=== PATIENT | female | born 2000 ===

== ENCOUNTER 2023-05-13 07:13 | Outpatient (AMB) | payer OTHER, SELFPAY ==
--- NOTE | 2023-05-13 07:30 | MHC.PC.OV ---
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 Accompanied by: Mother Allergies No Known Allergies Allergy (Verified 05/13/23 07:42) Medication List - Last Reconciled 05/13/23 by Princess Dhillon MD norethindrone-e.estradiol-iron 1 mg-20 mcg (21)/75 mg (7) (08/22 (28)) 1 tab PO DAILY Tobacco use date assessed: 05/13/23 Dental Screening Dental Screen Date: 05/13/23 Did you have a dental visit in the last 12 months?: Yes Did you have a dental problem in the last 6 months where you did not have access to dental care?: No Was dental information given to patient?: Patient has dentist HPI HPI Comments History of Present Illness Details This is a 23-year-old female that comes for her physical accompanied by mother. Pap smear is scheduled for next week. She is obese with a BMI of 39.7 and will be referred to weight management. No chest pain or shortness of breath. [facility] Surgical History No pertinent past surgical history Family History Mother No problems noted. Father No problems noted. Social History Housing: House Alcohol intake: current Alcohol intake frequency: holidays/special occasions only Alcohol type: wine and other Patient Tobacco Use Status: Never used Tobacco e-Cigarette/Vaping Use: Never Used Second Hand Smoke Exposure: No service: No Current occupational status: employed and student Current occupational exposures/hazards: No Cognitive needs: No Hearing needs: No Vision needs: Yes Questionnaire PHQ-9 Over the last 2 weeks, how often have you been bothered by any of the following problems? 1. Little interest or pleasure in doing things: not at all 2. Feeling down, depressed, or hopeless: not at all 3. Trouble falling or staying asleep, or sleeping too much: not at all 4. Feeling tired or having little energy: not at all 5. Poor appetite or overeating: not at all 6. Feeling bad about yourself - or that you are a failure or have let yourself or your family down: not at all 7. Trouble concentrating on things, such as reading the newspaper or watching television: not at all 8. Moving or speaking so slowly that other people could have noticed. Or the opposite - being so fidgety or restless that you have been moving around a lot more than usual: not at all 9. Thoughts that you would be better off or of hurting yourself in some way: not at all Total score: 0 Depression Screening Interpretation: Negative Depression Screening Done: Yes 56703 - PHQ-9 Billing: Yes Source: Developed by Drs. Donell Mesa, Christina Barr, Phillip Shah and colleagues, with an educational karlee from [employer]. Thrive Questionnaire Date Thrive assessed: 05/13/23 I am a: Patient What is your living situation today?: I have a steady place to live Within the past 12 months, did the food you bought not last and you didn't have the money to get more?: Never true Within the past 12 months, did you worry whether your food would run out before you got money to buy more?: Never true Do you have trouble paying for medicines?: No Do you have trouble getting transportation to medical appointments?: No Do you have trouble paying your heating and electricity bill?: No Do you have trouble taking care of your child, family member or friend?: No Do you have trouble with day-to-day activities such as bathing, preparing meals, shopping, managing finances, etc.?: No Are you currently unemployed and looking for a job?: No Are you interested in more education?: No Please select the resources that you would like help with: None Currently or been in a relationship where the following occur: no concerns reported AUDIT C Alcohol Use Questionnaire (AUDIT-C) 1. How often do you have a drink containing alcohol?: Monthly or less 2. How many drinks containing alcohol do you have on a typical day when you are drinking?: 1 or 2 3. How often do you have six or more drinks on one occasion?: Never Total Score: 1 Score Reviewed/Action Taken: No PAZ-7 AMB Questionnaire PAZ-7 Date PAZ - 7 assessed: 05/13/23 Feeling nervous, anxious, or on edge: 0 = Not at all Not being able to stop or control worryin = Not at all Worrying too much about different things: 0 = Not at all Trouble relaxin = Not at all Being so restless that it is hard to sit still: 0 = Not at all Becoming easily annoyed or irritable: 0 = Not at all Feeling afraid as if something awful might happen: 0 = Not at all Total PAZ-7 score (0-4 normal; 5-9 mild; 10-14 moderate; 15-21 severe): 0 Source: Developed by Drs. Donell Mesa, Christina Barr, Phillip Shah and colleagues, with an educational karlee from [employer]. PAZ-7 Assessment Billing PAZ-7 Assessment Tool: PAZ-7 Assessment 53877 Review of Systems Const All systems reviewed & are unremarkable except as noted in HPI and below Eyes Reports no additional complaints, Denies change in vision and Denies other visual disturbances Card Denies chest pain at rest, Denies chest pain with activity, Denies edema, Denies irregular heart rhythm, Denies claudication, Denies dyspnea, Denies dyspnea on exertion, Denies orthopnea, Denies paroxysmal nocturnal dyspnea and Denies slow heart rate Resp Denies cough, Denies dyspnea and Denies dyspnea on exertion GI Denies abdominal pain, Denies change in bowel habits, Denies excessive flatus, Denies nausea and Denies vomiting Denies urinary incontinence, Denies urinary hesitancy and Denies urinary urgency Musc Denies abnormal gait, Denies atrophy, Denies deformity and Denies limited range of motion Skin/Breast Denies bleeding lesions, Denies changing lesions and Denies rash Neuro Denies abnormal gait and Denies lack of coordination Physical exam (Primary Care) Vital Signs: Last Vital Signs BP 116/80 05/13/23 07:33 BMI result Body Mass Index 39.6 Tobacco/Smoking Status: Tobacco use Status Tobacco use date assessed 05/13/23 05/13/23 07:40 Patient Tobacco Use Status Never used Tobacco 05/13/23 07:40 e-Cigarette/Vaping Use Never Used 05/13/23 07:40 PHQ-9: PHQ-9 Score PHQ-9: Total score 0 05/13/23 07:49 Depression Screening Interpretation: Negative Thrive Assessment: Date of Thrive Assessment Date Thrive assessed 05/13/23 05/13/23 07:40 Currently or been in a relationship where the following occur: no concerns reported Const Orientation/consciousness: patient oriented x3 [facility] Head: Yes normal to inspection, Yes normocephalic and Yes atraumatic Ears: external ears normal General nose exam: Normal external nose present and No nasal discharge present Face and sinus: Yes sinuses nontender Mouth: lip normal Eyes General: appearance normal, both eyes and all related structures Eyelids: Yes eyelids normal Conjunctivae: conjunctivae normal Neck Neck: Yes normal visual inspection and Yes supple Resp Effort & Inspection: normal respiratory effort Auscultation: clear to auscultation bilaterally Cardio Jugular venous distension: no JVD Rate: regular rate Rhythm: regular rhythm Heart sounds: S1 normal heart sound present and S2 normal heart sound present GI Inspection: Yes normal to inspection Palpation (GI): Soft to palpation and nontender Auscultation: normal bowel sounds Skin General skin exam: no rashes or lesions noted Neuro General: patient oriented x3 and no focal motor deficits Extrem General: Yes full ROM Psych Appearance: grossly normal Office Procedures Flu Questionnaire Does the patient have a severe egg allergy?: No Does the patient have severe life threatening allergies?: No Does the patient have a fever or illness today?: No Has the patient ever had Guillain-Vershire Syndrome?: No Has the patient ever had any past reaction to a flu shot?: No Immunizations flu vacc [id number] 6mos up(PF) 60 mcg(15 mcgx4)/0.5 mL IM syringe Performing Provider: Princess Dhillon MD Performing Location: [facility] Administered by: RONALD Villagomez on 05/13/23 08:03 Dose Route Admin Location Dispensed Lot Number Expiration Date NDC Loom Control Chain Builder 0.5 mL IM Left Deltoid 0.5 mL [id number] 01/31/24 72221-786-90 [id number] VIS Given Date VIS Provided VIS Publication Date 05/13/23 Single Vaccine 21 Eligibility Eligibility Date Funding Source Not [place] Eligible 05/13/23 Private Assessment and Plan Assessment & Plan (1) Physical exam: Code(s): Z00.00 - Encounter for general adult medical examination without abnormal findings Plan: Repeat in a year. Orders: Orders Lipid Panel Today Z00.00 - Encounter for general adult medical examination without abnormal findings Influenza [id number] Immunization Today Z23 - Encounter for immunization Comprehensive Met. Panel Today Z00.00 - Encounter for general adult medical examination without abnormal findings Thyroid Stimulating Hormone Today E66.9 - Obesity, unspecified Complete Blood Count Auto Diff Today E66.9 - Obesity, unspecified Referrals Medical Weight Management Referral E66.9 - Obesity, unspecified Coding Level of Care Code Est Pt Prev Care 18-39y(42238) Diagnoses Physical exam Z00.00 Additional Codes PAZ-7 Assessment Billing - PAZ-7 Assessment Tool: PAZ-7 Assessment 53987 ([id number]) Time Spent (min) 33
[2023-05-13 07:33] VITALS: BP 116/80; PULSE 98; BMI 39.6
== END 2023-05-13 08:04 | disposition home or self-care (01) ==
PROVIDERS: PCP Pediatrics; Visit Provider Internal Medicine
DX: Z00.00 Encounter for general adult medical examination without abnormal findings (principal); Z23 Encounter for immunization
CPT/HCPCS: 90471; 90686; 99395

== ENCOUNTER 2023-06-13 08:43 | Outpatient (REF) | payer OTHER, SELFPAY ==
[2023-06-13 08:53] LABS: MANUAL DIFF FLAG NO
[2023-06-13 09:25] LABS: Basophils Percent Auto 0.2 % (0-2); Eosinophils Absolute Auto 0.1 X10*3/uL (0.0-0.4); Eosinophils Percent Auto 0.9 % (0-4); Hematocrit 42.5 % (37.0-47.0); Hemoglobin 13.7 g/dl (12.0-16.0); Imm Gran Abs Auto 0.02 X10*3/uL (0.00-0.03); Imm Gran Pct Auto 0.2 % (0.0-0.4); Lymphocytes Absolute Auto 2.7 X10*3/uL (1.2-4.9); Lymphocytes Percent Auto 31.7 % (20-40); Mean Corpuscular HGB Conc 32.2 g/dl (31.0-35.0); Mean Corpuscular Hemoglobin 29.9 pg (27.0-33.0); Mean Corpuscular Volume 92.8 fL (80.0-98.0); Mean Platelet Volume 9.1 fL (9.4-12.3); Monocytes Absolute Auto 0.7 X10*3/uL (0.1-1.2); Monocytes Percent Auto 8.6 % (2-11); Neutrophils Absolute Auto 5.1 x10*3/uL (2.0-8.3); Neutrophils Percent Auto 58.4 % (45-73); Platelet Count 337 X10*3/uL (160-400); Red Blood Count 4.58 X10*6/uL (4.20-5.50); Red Cell Distribution Width 11.9 % (11.0-16.0); White Blood Count 8.7 X10*3/uL (4.8-10.8)
[2023-06-13 09:50] LABS: Alanine Aminotransferase 24 U/L (0-31); Albumin Level 3.9 g/dL (3.5-5.0); Alkaline Phosphatase 67 U/L (39-117); Anion Gap 11 (12-20); Aspartate Amino Transferase 21 U/L (5-31); Bilirubin Total 0.6 mg/dL (0.0-1.0); Blood Urea Nitrogen 10 mg/dL (9-16); Calcium 9.2 mg/dL (8.4-10.2); Carbon Dioxide 26 mmol/L (22-29); Chloride 107 mmol/L (96-108); Cholesterol 116 mg/dL (<200); Estimated Glomerular Filt Rate > 60; Glucose Random 90 mg/dL (60-115); HDL Cholesterol 39 mg/dL (>40); LDL Cholesterol Calculated 54 mg/dL (<100); Potassium 4.1 mmol/L (3.3-5.1); Sodium 140 mmol/L (135-145); Total Protein 7.3 g/dL (6.5-8.0); Triglycerides 118 mg/dL (<150)
[2023-06-13 10:06] LABS: Thyroid Stimulating Hormone 1.58 uIU/mL (0.32-4.0)
== END 2023-06-13 08:44 | disposition home or self-care (01) ==
LOC: HO.LAB 08:43
PROVIDERS: PCP Internal Medicine; Visit Provider Internal Medicine
DX: Z00.00 Encounter for general adult medical examination without abnormal findings (principal); E66.9 Obesity, unspecified
CPT/HCPCS: 36415; 80053; 80061; 84443; 85025

== ENCOUNTER 2023-12-16 10:59 | Emergency (ER) | payer OTHER, SELFPAY ==
--- NOTE | ~2023-12-16 | XR_ITS ---
EXAMINATION: XR KNEE, RIGHT CLINICAL INFORMATION: Right knee pain following a fall. COMPARISON: None available. TECHNIQUE: Four views of the right knee. FINDINGS: No fracture or joint effusion. Alignment is anatomic. Joint spaces are maintained. No abnormal soft tissue calcification. XR/XR knee RT 3V IMPRESSION: Unremarkable examination.
--- NOTE | ~2023-12-16 | XR_ITS ---
EXAMINATION: XR HIP, LEFT CLINICAL INFORMATION: Left hip pain following a fall. COMPARISON: None available. TECHNIQUE: AP view the pelvis as well as AP and frog-leg lateral views of the left hip. of the left hip. FINDINGS: No fracture. Alignment is anatomic. Hip joint space is maintained. Soft tissues are unremarkable. XR/XR hip LT w PEL1V IMPRESSION: Unremarkable examination.
--- NOTE | ~2023-12-16 | XR_ITS ---
EXAMINATION: XR HAND, LEFT CLINICAL INFORMATION: Left fifth digit injury, patient fell COMPARISON: None available. TECHNIQUE: PA, lateral, and oblique views of the left hand. FINDINGS: The bones and soft tissues are normal. No fracture. Alignment is anatomic. Joint spaces are maintained. No erosions or soft tissue calcifications. XR/XR hand LT min 3V IMPRESSION: Normal left hand.
[2023-12-16 11:40] VITALS: BP 114/90; PULSE 94; RESP 16; TEMP 36.7; O2SAT 99; BMI 39.5
--- NOTE | 2023-12-16 11:40 | ED.GENADULT ---
HPI - General Adult General Chief complaint: Fall Stated complaint: Fell @ work Time Seen by Provider: 12/16/23 13:55 Source: patient Mode of arrival: ambulatory Limitations: no limitations History of Present Illness HPI narrative: Patient is a 23 year old assigned female at with no reported medical history presenting to the emergency department today with right knee pain, left groin pain, and left 5th finger pain. Patient states that she was at work when someone fell backwards in a chair and shell attempted to catch herself with her right knee and then landed on her left side. Patient denies any head strike, loss of consciousness, dizziness, lightheadedness, abdominal pain, nausea, vomiting, fever, chills, blurry vision, double vision, loss of vision, chest pain, difficulty breathing, shortness of breath, back pain, night sweats, pain with urination, increased urinary frequency, increased urinary urgency, blood in her urine or stool, syncope or a near syncopal episode, bowel incontinence, bladder incontinence, bowel retention, bladder retention, or any other complaints at this time. Onset (ago): minute(s) Location: left (knee, groin, and 5th finger) and right (knee) Severity: mild Severity scale (1-10): 4 Quality: aching and dull Pain Consistency: constant Relieving factors: immobilization Exacerbating factors: movement Associated symptoms: denies other symptoms Treatments prior to arrival: none Related Data Home Medications ?Medication ?Instructions ?Recorded ?Confirmed norethindrone 1 mg-ethinyl 1 tab PO DAILY 05/13/23 05/13/23 estradiol 20 mcg (21)-iron 75 mg (7) tablet (08/22 (28)) Allergies Allergy/AdvReac Type Severity Reaction Status Date / Time No Known Allergies Allergy Verified 12/16/23 11:40 Review of Systems Constitutional: Constitutional: Reports no additional constitutional complaints, Denies chills, Denies fever(s) and Denies night sweats Eyes: Eyes: Reports no additional eye complaints, Denies blurry vision, Denies change in vision, Denies diplopia, Denies eye discharge, Denies loss of vision and Denies eye pain ENT: Denies dizziness Cardiovascular: Cardiovascular: Reports no additional cardiovascular complaints, Denies chest pain, Denies lightheadedness, Denies Loss of Consciousness and Denies dyspnea Respiratory: Respiratory: Reports no additional respiratory complaints and Denies dyspnea Gastrointestinal: Gastrointestinal: Reports no additional gastrointestinal complaints, Denies abdominal pain, Denies melena, Denies hematochezia, Denies change in bowel habits and Denies change in stool character Genitourinary: Genitourinary: Denies hematuria, Denies urinary frequency, Denies dysuria, Denies urinary incontinence, Denies urinary hesitancy and Denies urinary urgency Musculoskeletal: Musculoskeletal: Reports no additional musculoskeletal complaints, Denies numbness and Denies tingling Comments: right knee pain, left groin pain, and left 5th finger pain Neurologic: Denies dizziness, Denies loss of vision, Denies numbness and Denies tingling Psychiatric: Psychiatric: Reports no additional psychiatric complaints Endocrine: Endocrine: Reports no additional endocrine complaints Hematologic/Lymphatic: Hematologic/Lymphatic: Reports no additional hematologic/lymphatic complaints Allergic/Immunologic: Allergic/Immunologic: Reports no additional allergic/immunologic complaints PMFSH Past Medical History Attestation statement: The following information was validated with the patient. Source: old records reviewed and nursing notes reviewed Surgical History No pertinent past surgical history Family History Family History Mother No problems noted. Father No problems noted. Social History Social History Housing: House Alcohol intake: current Alcohol intake frequency: holidays/special occasions only Alcohol type: wine and other Patient Tobacco Use Status: Never used Tobacco e-Cigarette/Vaping Use: Never Used Second Hand Smoke Exposure: No Advance Directives: No Advance Directives Information Provided: No service: No Current occupational status: employed and student Current occupational exposures/hazards: No Cognitive needs: No Hearing needs: No Vision needs: Yes Physical Exam ED Vital Signs: Vital Signs - 24 hr 12/16/23 11:40 Temperature 98.1 F Pulse Rate 94 Respiratory Rate 16 Blood Pressure 114/90 H Pulse Oximetry 99 Oxygen Delivery Method Room Air BMI result Body Mass Index 39.5 Const General: cooperative, no acute distress, alert and awake Nutritional Appearance: well nourished Orientation/consciousness: patient oriented x3 Limitations: no limitations HENMT Head: Yes normal to inspection and Yes atraumatic Ears: hearing grossly normal bilaterally and external ears normal General nose exam: Normal external nose present, no nasal discharge noted and no epistaxis Face and sinus: Yes normal facial exam, No abrasion and No laceration Mouth: Normal oral and palatal mucosa present, no drooling and no muffled voice Eyes General: appearance normal, both eyes and all related structures Periorbital: periorbital findings normal Eyelids: Yes eyelids normal Conjunctivae: conjunctivae normal Pupils: Equal, round and reactive pupils present EOM: EOMs intact bilaterally Neck Neck: Yes normal visual inspection, Yes full ROM and Yes no lymphadenopathy Chest Chest palpation & inspection: normal inspection of the chest Resp Effort & Inspection: normal respiratory effort and able to speak in complete sentences GI Inspection: Yes normal to inspection Neuro General: patient oriented x3 and moves all extremities Cranial nerves: Yes Equal, round and reactive pupils present Cognition (Neuro): normal cognition Motor exam (neuro): 5/5 motor strength present throughout Sensory Exam: Normal double simultaneous stimulation for sensation Coordination: [id number] test normal Extrem Other: pain with palpation of the left 5th digit General: Yes normal to inspection, Yes full ROM and Yes capillary refill normal Psych Appearance: grossly normal Mental Status: mental status grossly normal Affect: normal affect Attitude: cooperative Thought process: Normal thought process present Thought content: Normal thought content present Insight: Good insight present (Psych) Course Course Course Narrative: This is a rapid medical exam performed by Clayton Santana NP: Additional HPI, ROS, PE not included below will be deferred to primary provider. Patient is a 23-year-old female presenting to the emergency department [facility] complaint of left groin pain and right knee pain after fall at work. States co-worker was giving her a hug at work while sitting on a chair when the chair broke and patient fell to the ground. Pain worsens with ambulation. Plan: Upreg, xrays Medical Decision Making Medical Decision Making MDM Narrative: Patient is a 23 year old assigned female at with no reported medical history presenting to the emergency department today with left groin pain, right knee pain, and left 5th finger pain. Patient's physical exam was as noted in the physical exam portion of this note. Patient's left hip, right knee, and left hand x-rays showed no acute process. I explained my physical exam findings as well as all test results to the patient. I answered all questions asked by the patient. I stressed the importance of the patient taking her medication as prescribed. I stressed the importance of the patient following up with her primary care provider and given this was a work place incident, work connection. I stressed the importance of the patient returning to the emergency department immediately if her symptoms were to worsen or if she were to develop any dizziness, shortness of breath, difficulty breathing, chest pain, blurry vision, loss of vision, nausea, vomiting, abdominal pain, fever, chills, back pain, or any other complaints. Patient verbalized agreement and understanding with this treatment plan and discharge. Differential Diagnosis Differential Diagnoses: The differential diagnosis associated with the presentation includes Knee pain 5th finger pain Knee sprain Knee strain Groin strain Groin sprain Admission/Observation Consideration of admission/observation: Escalation of care including admission/observation considered Patient would have been admitted to the hospital had her work up had any findings where hospital admission was appropriate and her clinical presentation warranted hospital admission. Lab Data MDM Lab Attestation statement: I reviewed the patient's lab results. My interpretation of these studies and their corresponding values is that they are grossly normal. Labs: Lab Results 12/16/23 Range/Units 12:17 Urine Test NEGATIVE (NEGATIVE) Independent Interpretation I performed an independent interpretation of an: Plain X-Ray Interpretation: My interpretation is in agreement with the radiologist's impression of these imaging studies. EXAMINATION: XR HAND, LEFT CLINICAL INFORMATION: Left fifth digit injury, patient fell COMPARISON: None available. TECHNIQUE: PA, lateral, and oblique views of the left hand. FINDINGS: The bones and soft tissues are normal. No fracture. Alignment is anatomic. Joint spaces are maintained. No erosions or soft tissue calcifications. XR/XR hand LT min 3V IMPRESSION: Normal left hand. Dictated By: Ac Bonilla Signed By: Electronically signed by Ac Bonilla 12/16/23 1640 EXAMINATION: XR KNEE, RIGHT CLINICAL INFORMATION: Right knee pain following a fall. COMPARISON: None available. TECHNIQUE: Four views of the right knee. FINDINGS: No fracture or joint effusion. Alignment is anatomic. Joint spaces are maintained. No abnormal soft tissue calcification. XR/XR knee RT 3V IMPRESSION: Unremarkable examination. Dictated By: Sarath Ribera MD Signed By: Electronically signed by Sarath Ribera MD 12/16/23 1338 EXAMINATION: XR HIP, LEFT CLINICAL INFORMATION: Left hip pain following a fall. COMPARISON: None available. TECHNIQUE: AP view the pelvis as well as AP and frog-leg lateral views of the left hip. of the left hip. FINDINGS: No fracture. Alignment is anatomic. Hip joint space is maintained. Soft tissues are unremarkable. XR/XR hip LT w PEL1V IMPRESSION: Unremarkable examination. Dictated By: Sarath Ribera MD Signed By: Electronically signed by Sarath Ribera MD 12/16/23 6135 Radiology Impression Discussion of test interpretation with radiology: I have reviewed the radiologist's reading. Discharge Plan Discharge Clinical Impression: Fall, Finger pain, Knee pain, Groin strain Patient Disposition: Home, Self-Care Instructions: Groin Strain (ED), Knee Pain (ED) Additional Instructions: Given this was a work place incident, please follow up with work connection. Follow up with your primary care provider. Return to the emergency department immediately if your symptoms worsen or if you develop any dizziness, shortness of breath, difficulty breathing, chest pain, blurry vision, loss of vision, nausea, vomiting, abdominal pain, fever, chills, back pain, or any other complaints. Prescriptions: No Action norethindrone-e.estradiol-iron [08/22 (28)] 1 mg-20 mcg (21)/75 mg (7) tablet 1 tab PO DAILY Referrals: [facility] [Provider Group] (Given this was a work place incident, please follow up with work connection.) Princess Colon MD [Primary Care Provider] - Stand Alone Forms: Work/School Release Print Language: Romanian
[2023-12-16 12:26] LABS: UPreg QC Valid YES; Urine Pregnancy NEGATIVE (NEGATIVE)
[2023-12-16 17:22] VITALS: BP 114/90; PULSE 94; RESP 16; TEMP 36.7; O2SAT 99
== END 2023-12-16 17:23 | disposition home or self-care (01) ==
PROVIDERS: Registered Nurse Emergency; Emergency Provider Emergency Medicine; PCP Internal Medicine
DX: S39.011A Strain of muscle, fascia and tendon of abdomen, initial encounter (principal); W18.39XA Other fall on same level, initial encounter; Y93.89 Activity, other specified; Y92.89 Other specified places as the place of occurrence of the external cause; Y99.0 Civilian activity done for income or pay; M25.562 Pain in left knee; R10.30 Lower abdominal pain, unspecified; M79.645 Pain in left finger(s)
CPT/HCPCS: 73130; 73502; 73562; 81025; 99282; 99283

== ENCOUNTER 2024-01-07 11:26 | Outpatient (AMB) | payer OTHER, SELFPAY ==
[2024-01-07 11:34] VITALS: BP 120/90; PULSE 85; TEMP 36.3; O2SAT 96; BMI 41.7
--- NOTE | 2024-01-07 11:34 | AM.OFFWIN_ITS ---
Intake Vital Signs 3 01/07/24 11:34 Height 5 ft 4 in Weight 243 lb BMI 41.7 BP 120/90 H Blood Pressure Location Lt brachial Position Sitting Pulse 85 Pulse Source Pulse Oximeter Temp 97.4 F Temp Source Temporal Artery Scan Pulse Oximetry (%) 96 Oxygen Delivery Method Room Air Intake Visit Reasons: EP Rash under breast Intake Note: pt is her today for rash under breast started 2 weeks ago Patient Tobacco Use Status: Never used Tobacco Allergies No Known Allergies Allergy (Verified 01/07/24 11:37) Do you need a note to return to daycare/school/sports/work: No HPI HPI Comments 2 History of Present Illness0 Details 23 y/o female patient who presents to [facility] in clinic with c/o rash under left breast x 2 weeks. Describes the rash as itchy and burning. PFSH Surgical History No pertinent past surgical history Family History Mother No problems noted. Father No problems noted. Social History Housing: House Alcohol intake: current Alcohol intake frequency: holidays/special occasions only Alcohol type: wine and other Patient Tobacco Use Status: Never used Tobacco e-Cigarette/Vaping Use: Never Used Second Hand Smoke Exposure: No service: No Current occupational status: employed and student Current occupational exposures/hazards: No Cognitive needs: No Hearing needs: No Vision needs: Yes Review of Systems Const All systems reviewed & are unremarkable except as noted in HPI and below Physical Exam Vital Signs: Last Vital Signs Temp 97.4 F 01/07/24 11:34 Pulse 85 01/07/24 11:34 BP 120/90 H 01/07/24 11:34 Pulse Ox 96 01/07/24 11:34 Oxygen Delivery Method Room Air 01/07/24 11:34 BMI result Body Mass Index 41.7 Const General: comfortable and no acute distress Nutritional Appearance: obese Orientation/consciousness: patient oriented x3 Chest Chest/axillae images: 2 1. red flat rash with sharp, scalloped edges Skin General skin exam: dry skin and erythema Neuro General: patient oriented x3, gait normal and moves all extremities Assessment & Plan Assessment & Plan (1) Intertriginous candidiasis: Code(s): B37.2 - Candidiasis of skin and nail Plan: Keeping the affected area clean and dry and using powder to reduce friction may help soothe skin inflammation. Wearing loose-fitting clothing and losing weight may also help. Medications: New 2 ketoconazole 2% 1 appl topical BID 15 grams 0RF B37.2 - Candidiasis of skin and nail Coding Level of Care Code Est Pt Level 3 (57416) Diagnoses Intertriginous candidiasis B37.2 Time Spent (min) 15
== END 2024-01-07 12:34 | disposition home or self-care (01) ==
PROVIDERS: PCP Internal Medicine; Visit Provider Nurse Practitioner Family
DX: B37.2 Candidiasis of skin and nail (principal)
CPT/HCPCS: 99213

== ENCOUNTER 2024-05-16 07:45 | Outpatient (AMB) | payer BC, SELFPAY ==
--- NOTE | 2024-05-16 07:51 | A.OFFPC_ITS ---
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 Accompanied by: Self / Same As Patient Allergies No Known Allergies Allergy (Verified 05/16/24 08:11) Medication List - Last Reconciled 05/16/24 by Princess Dhillon MD ketoconazole 2% 1 appl topical BID Tobacco use date assessed: 05/16/24 Dental Screening Dental Screen Date: 05/16/24 Did you have a dental visit in the last 12 months?: Yes Did you have a dental problem in the last 6 months where you did not have access to dental care?: No Was dental information given to patient?: Patient has dentist HPI HPI Comments History of Present Illness Details This is a 24-year-old female with morbid obesity that comes for her physical exam. She is morbidly obese and would like to enroll in weight management. Pap smear was last year and was normal as per patient. Denies any chest pain or shortness on breath. No fever or cough. [facility], [facility] Medical History (Updated 05/16/24 @ 08:56 by Princess Dhillon MD) Obesity (BMI 35.0-39.9 without comorbidity) Surgical History No pertinent past surgical history Family History Mother No problems noted. Father No problems noted. Social History Housing: House Alcohol intake: current Alcohol intake frequency: holidays/special occasions only Alcohol type: wine and other Patient Tobacco Use Status: Never used Tobacco e-Cigarette/Vaping Use: Never Used Second Hand Smoke Exposure: No service: No Current occupational status: employed and student Current occupational exposures/hazards: No Cognitive needs: No Hearing needs: No Vision needs: Yes Questionnaire PHQ-9 Over the last 2 weeks, how often have you been bothered by any of the following problems? 1. Little interest or pleasure in doing things: not at all 2. Feeling down, depressed, or hopeless: not at all 3. Trouble falling or staying asleep, or sleeping too much: not at all 4. Feeling tired or having little energy: not at all 5. Poor appetite or overeating: not at all 6. Feeling bad about yourself - or that you are a failure or have let yourself or your family down: not at all 7. Trouble concentrating on things, such as reading the newspaper or watching television: not at all 8. Moving or speaking so slowly that other people could have noticed. Or the opposite - being so fidgety or restless that you have been moving around a lot more than usual: not at all 9. Thoughts that you would be better off or of hurting yourself in some way: not at all Total score: 0 Depression Screening Interpretation: Negative Depression Screening Done: Yes 78717 - PHQ-9 Billing: Yes Source: Developed by Drs. Donell Mesa, Christina Barr, Phillip Shah and colleagues, with an educational karlee from [employer]. Thrive Questionnaire Date Thrive assessed: 05/16/24 I am a: Patient What is your living situation today?: I have a steady place to live Within the past 12 months, did the food you bought not last and you didn't have the money to get more?: Never true Within the past 12 months, did you worry whether your food would run out before you got money to buy more?: Never true Do you have trouble paying for medicines?: No Do you have trouble getting transportation to medical appointments?: No Do you have trouble paying your heating and electricity bill?: No Do you have trouble taking care of your child, family member or friend?: No Do you have trouble with day-to-day activities such as bathing, preparing meals, shopping, managing finances, etc.?: No Are you currently unemployed and looking for a job?: No Are you interested in more education?: No Please select the resources that you would like help with: None Currently or been in a relationship where the following occur: No concerns reported THRIVE Score: 0 AUDIT C Alcohol Use Questionnaire (AUDIT-C) 1. How often do you have a drink containing alcohol?: Monthly or less 2. How many drinks containing alcohol do you have on a typical day when you are drinking?: 1 or 2 3. How often do you have six or more drinks on one occasion?: Never Total Score: 1 Score Reviewed/Action Taken: No PAZ-7 AMB Questionnaire PAZ-7 Date PAZ - 7 assessed: 05/16/24 Feeling nervous, anxious, or on edge: 0 = Not at all Not being able to stop or control worryin = Not at all Worrying too much about different things: 0 = Not at all Trouble relaxin = Not at all Being so restless that it is hard to sit still: 0 = Not at all Becoming easily annoyed or irritable: 0 = Not at all Feeling afraid as if something awful might happen: 0 = Not at all Total PAZ-7 score (0-4 normal; 5-9 mild; 10-14 moderate; 15-21 severe): 0 Source: Developed by Drs. Donell Mesa, Christina Barr, Phillip Shah and colleagues, with an educational karlee from [employer]. PAZ-7 Assessment Billing PAZ-7 Assessment Tool: PAZ-7 Assessment 66576 Review of Systems Const All systems reviewed & are unremarkable except as noted in HPI and below Card Denies chest pain at rest, Denies chest pain with activity, Denies edema, Denies irregular heart rhythm, Denies claudication, Denies dyspnea, Denies dyspnea on exertion, Denies orthopnea, Denies paroxysmal nocturnal dyspnea and Denies slow heart rate Resp Denies cough, Denies dyspnea and Denies dyspnea on exertion GI Denies abdominal pain, Denies change in bowel habits, Denies excessive flatus, Denies nausea and Denies vomiting Physical exam (Primary Care) Vital Signs: Last Vital Signs BP 118/78 05/16/24 07:52 BMI result Body Mass Index 41.0 BMI Assessment/Plan discussion: High BMI High, discussed plan: lifestyle, weight reduction, dietary and physical activity Tobacco/Smoking Status: Tobacco use Status Tobacco use date assessed 05/16/24 05/16/24 07:58 Patient Tobacco Use Status Never used Tobacco 05/16/24 07:58 e-Cigarette/Vaping Use Never Used 05/16/24 07:58 PHQ-9: PHQ-9 Score PHQ-9: Total score 0 05/16/24 08:40 Depression Screening Interpretation: Negative Thrive Assessment: Date of Thrive Assessment Date Thrive assessed 05/16/24 05/16/24 07:58 Currently or been in a relationship where the following occur: No concerns reported HENMT Head: Yes normal to inspection, Yes normocephalic and Yes atraumatic Ears: external ears normal Eyes General: appearance normal, both eyes and all related structures Eyelids: Yes eyelids normal Conjunctivae: conjunctivae normal Neck Neck: Yes normal visual inspection and Yes supple Resp Effort & Inspection: normal respiratory effort Auscultation: clear to auscultation bilaterally Cardio Jugular venous distension: no JVD Rate: regular rate Rhythm: regular rhythm Heart sounds: S1 normal heart sound present and S2 normal heart sound present GI Inspection: Yes normal to inspection Palpation (GI): Soft to palpation and nontender Auscultation: normal bowel sounds Skin General skin exam: no rashes or lesions noted Neuro General: no focal motor deficits Extrem General: Yes full ROM Psych Appearance: grossly normal Office Procedures Flu Questionnaire Does the patient have a severe egg allergy?: No Does the patient have severe life threatening allergies?: No Does the patient have a fever or illness today?: No Has the patient ever had Guillain-[place] Syndrome?: No Has the patient ever had any past reaction to a flu shot?: No Immunizations Fluarix Triv [id number] (PF) 45 mcg (15 mcg x 3)/0.5 mL IM syringe Performing Provider: Prnicess Dhillon MD [facility] Administered by: RONALD Villagomez on 05/16/24 08:30 Dose Route Admin Location Dispensed Lot Number Expiration Date [facility] Conductor And Engineer 0.5 mL IM Left Deltoid 0.5 mL [id number] 01/30/25 [id number] [facility] Given Date VIS Provided VIS Publication Date 05/16/24 Single Vaccine 21 Eligibility Eligibility Date Funding Source Not [facility] Eligible 05/16/24 Private Coding Level of Care Code Est Pt Prev Care 18-39y(87233) Diagnoses Physical exam Z00.00 Morbid obesity with BMI of 40.0-44.9, adult E66.01; Z68.41 Additional Codes PAZ-7 Assessment Billing - PAZ-7 Assessment Tool: PAZ-7 Assessment 81794 ([id number]) Time Spent (min) 31 Assessment & Plan Assessment & Plan (1) Physical exam: Code(s): Z00.00 - Encounter for general adult medical examination without abnormal findings Category: Medical Plan: Repeat in a year. (2) Morbid obesity with BMI of 40.0-44.9, adult: Code(s): E66.01 - Morbid (severe) obesity due to excess calories; Z68.41 - Body mass index [BMI] 40.0-44.9, adult Category: Medical Plan: Start diet and exercise. BMI goal is less than 30. Contact weight management. Orders: Orders Influenza [id number] Immunization Today Z23 - Encounter for immunization
[2024-05-16 07:52] VITALS: BP 118/78; BMI 41.0
== END 2024-05-16 08:37 | disposition home or self-care (01) ==
PROVIDERS: PCP Internal Medicine; Visit Provider Internal Medicine
DX: Z00.00 Encounter for general adult medical examination without abnormal findings (principal); E66.01 Morbid (severe) obesity due to excess calories; Z68.41 Body mass index [BMI] 40.0-44.9, adult; Z23 Encounter for immunization

== ENCOUNTER → 2024-05-16 07:45 | Outpatient (BNVA) | payer BC, SELFPAY | PROVIDERS: PCP Internal Medicine; Visit Provider Internal Medicine | DX: Z00.00 Encounter for general adult medical examination without abnormal findings (principal); E66.01 Morbid (severe) obesity due to excess calories; Z68.41 Body mass index [BMI] 40.0-44.9, adult; Z23 Encounter for immunization | CPT/HCPCS: 90471; 90656; 96127 ==

== ENCOUNTER 2025-05-18 08:33 | Outpatient (AMB) | payer BC, SELFPAY ==
--- NOTE | 2025-05-18 08:41 | A.OFFPC_ITS ---
Vital Signs 05/18/25 08:42 Height 5 ft 4 in Weight 241 lb 6 oz BMI 41.4 BP 118/70 Blood Pressure Location Lt brachial Position Sitting Pulse 96 Pulse Source Pulse Oximeter Temp 97.1 F Temp Source Temporal Artery Scan Pulse Oximetry (%) 98 Oxygen Delivery Method Room Air Intake Visit Reasons: Annual Exam Oncology Consultant Required: No Accompanied by: Self / Same As Patient Allergies No Known Allergies Allergy (Verified 05/18/25 09:02) Medication List - Last Reconciled 05/18/25 by Princess Dhillon MD ketoconazole 2% 1 appl topical BID norethindrone ac-eth estradiol 1-20 mg-mcg () 1 tab PO DAILY Tobacco use date assessed: 05/18/25 Dental Screening Dental Screen Date: 05/18/25 Did you have a dental visit in the last 12 months?: Yes Did you have a dental problem in the last 6 months where you did not have access to dental care?: No Was dental information given to patient?: Patient has dentist HPI HPI Comments History of Present Illness Details The patient is a 25-year-old female presenting for a physical examination and preventative care. She has no known allergies to medications and is currently using contraceptives and ketoconazole cream. There is no history of surgeries, and her parents are alive and healthy. The patient does not smoke and only consumes alcohol on special occasions. She denies any history of depression or anxiety and is up to date with her Pap smear screenings. The patient is unsure about her tetanus vaccination status but is likely within the recommended age range for vaccination. She agreed to receive the influenza vaccination during this visit. Her last blood work was conducted two years ago, showing normal results including white blood cells, hemoglobin, glucose, renal function, cholesterol, and thyroid function. There have been no acute complaints or changes in her health status since then. The patient is noted to be morbidly obese with a BMI of 41.4 and has been advised to pursue diet and exercise to achieve a BMI below 30. [facility] Medical History Obesity (BMI 35.0-39.9 without comorbidity) Surgical History No pertinent past surgical history Family History Mother No problems noted. Father No problems noted. Social History Housing: House Alcohol intake: current Alcohol intake frequency: holidays/special occasions only Alcohol type: wine and other Patient Tobacco Use Status: Never used Tobacco e-Cigarette/Vaping Use: Never Used Second Hand Smoke Exposure: No service: No Current occupational status: employed and student Current occupational exposures/hazards: No Cognitive needs: No Hearing needs: No Vision needs: Yes Questionnaire PHQ-9 Over the last 2 weeks, how often have you been bothered by any of the following problems? 1. Little interest or pleasure in doing things: not at all 2. Feeling down, depressed, or hopeless: not at all 3. Trouble falling or staying asleep, or sleeping too much: not at all 4. Feeling tired or having little energy: not at all 5. Poor appetite or overeating: not at all 6. Feeling bad about yourself - or that you are a failure or have let yourself or your family down: not at all 7. Trouble concentrating on things, such as reading the newspaper or watching television: not at all 8. Moving or speaking so slowly that other people could have noticed. Or the opposite - being so fidgety or restless that you have been moving around a lot more than usual: not at all 9. Thoughts that you would be better off or of hurting yourself in some way: not at all Total score: 0 Depression Screening Interpretation: Negative Depression Screening Done: Yes 28237 - PHQ-9 Billing: Yes Source: Developed by Drs. Donell Mesa, Christina Barr, Phillip Shah and colleagues, with an educational karlee from [email or web address]. Thrive Questionnaire Date Thrive assessed: 05/11/25 I am a: Patient What is your living situation today?: I have a steady place to live Within the past 12 months, did the food you bought not last and you didn't have the money to get more?: Never true Within the past 12 months, did you worry whether your food would run out before you got money to buy more?: Never true Do you have trouble paying for medicines?: No Do you have trouble getting transportation to medical appointments?: No Do you have trouble paying your heating and electricity bill?: No Do you have trouble taking care of your child, family member or friend?: No Do you have trouble with day-to-day activities such as bathing, preparing meals, shopping, managing finances, etc.?: No Are you currently unemployed and looking for a job?: No Are you interested in more education?: Yes Please select the resources that you would like help with: None Currently or been in a relationship where the following occur: No concerns reported THRIVE Score: 0 AUDIT C Alcohol Use Questionnaire (AUDIT-C) 1. How often do you have a drink containing alcohol?: Monthly or less 2. How many drinks containing alcohol do you have on a typical day when you are drinking?: 1 or 2 3. How often do you have six or more drinks on one occasion?: Never Total Score: 1 Score Reviewed/Action Taken: No PAZ-7 AMB Questionnaire PAZ-7 Date PAZ - 7 assessed: 05/18/25 Feeling nervous, anxious, or on edge: 0 = Not at all Not being able to stop or control worryin = Not at all Worrying too much about different things: 0 = Not at all Trouble relaxin = Not at all Being so restless that it is hard to sit still: 0 = Not at all Becoming easily annoyed or irritable: 0 = Not at all Feeling afraid as if something awful might happen: 0 = Not at all Total PAZ-7 score (0-4 normal; 5-9 mild; 10-14 moderate; 15-21 severe): 0 Source: Developed by Drs. Donell Mesa, Christina Barr, Phillip Shah and colleagues, with an educational karlee from [email or web address]. PAZ-7 Assessment Billing PAZ-7 Assessment Tool: PAZ-7 Assessment 76597 Review of Systems Const All systems reviewed & are unremarkable except as noted in HPI and below Card Denies chest pain at rest, Denies chest pain with activity, Denies edema, Denies irregular heart rhythm, Denies claudication, Denies dyspnea, Denies dyspnea on exertion, Denies orthopnea, Denies paroxysmal nocturnal dyspnea and Denies slow heart rate Resp Denies cough, Denies dyspnea and Denies dyspnea on exertion Denies urinary incontinence, Denies urinary hesitancy and Denies urinary urgency Musc Denies atrophy, Denies deformity and Denies limited range of motion Physical exam (Primary Care) Vital Signs: Last Vital Signs Temp 97.1 F 05/18/25 08:42 Pulse 96 05/18/25 08:42 BP 118/70 05/18/25 08:42 Pulse Ox 98 05/18/25 08:42 Oxygen Delivery Method Room Air 05/18/25 08:42 BMI result Body Mass Index 41.4 BMI Assessment/Plan discussion: High BMI High, discussed plan: lifestyle, weight reduction, dietary and physical activity Tobacco/Smoking Status: Tobacco use Status Tobacco use date assessed 05/18/25 05/18/25 08:45 Patient Tobacco Use Status Never used Tobacco 05/18/25 08:45 e-Cigarette/Vaping Use Never Used 05/18/25 08:45 PHQ-9: PHQ-9 Score PHQ-9: Total score 0 05/18/25 09:07 Depression Screening Interpretation: Negative Thrive Assessment: Date of Thrive Assessment Date Thrive assessed 05/11/25 05/18/25 08:45 Currently or been in a relationship where the following occur: No concerns reported Const Orientation/consciousness: patient oriented x3 HENMT Head: Yes normal to inspection, Yes normocephalic and Yes atraumatic Ears: external ears normal Eyes General: appearance normal, both eyes and all related structures Eyelids: Yes eyelids normal Conjunctivae: conjunctivae normal Neck Neck: Yes normal visual inspection and Yes supple Resp Effort & Inspection: normal respiratory effort Auscultation: clear to auscultation bilaterally Cardio Jugular venous distension: no JVD Rate: regular rate Rhythm: regular rhythm Heart sounds: S1 normal heart sound present and S2 normal heart sound present GI Inspection: Yes normal to inspection Palpation (GI): Soft to palpation and nontender Auscultation: normal bowel sounds Skin General skin exam: no rashes or lesions noted Neuro General: patient oriented x3 and no focal motor deficits Extrem General: Yes full ROM Psych Appearance: grossly normal Office Procedures Flu Questionnaire Does the patient have a severe egg allergy?: No Does the patient have severe life threatening allergies?: No Does the patient have a fever or illness today?: No Has the patient ever had Guillain-[place] Syndrome?: No Has the patient ever had any past reaction to a flu shot?: No Immunizations Fluarix [id number] (PF) 45 mcg (15 mcg x 3)/0.5 mL IM syringe Performing Provider: Princess Dhillon MD [place] [facility] [place] [facility] Administered by: Prema Shrestha CMA on 05/18/25 09:14 Dose Route Admin Location Dispensed Lot Number Expiration Date [employer] Testing 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 0.5 mL IM Left Deltoid 0.5 mL [id number] 01/30/26 [id number] [employer] VIS Given Date VIS Provided VIS Publication Date 05/18/25 Single Vaccine 24 Eligibility Eligibility Date Funding Source Not [facility] Eligible 05/18/25 Private Coding Level of Care Code Est Pt Prev Care 18-39y(37352) Diagnoses Physical exam Z00.00 Morbid obesity with BMI of 40.0-44.9, adult E66.01; Z68.41 Additional Codes PAZ-7 Assessment Billing - PAZ-7 Assessment Tool: PAZ-7 Assessment 36703 ([id number]) PHQ-9 - 90768 - PHQ-9 Billing: Yes ([id number]) Time Spent (min) 30 Assessment & Plan Assessment & Plan (1) Physical exam: Code(s): Z00.00 - Encounter for general adult medical examination without abnormal findings Category: Medical (2) Morbid obesity with BMI of 40.0-44.9, adult: Code(s): E66.01 - Morbid (severe) obesity due to excess calories; Z68.41 - Body mass index [BMI] 40.0-44.9, adult Category: Medical Plan Plan 1. Encounter for general adult medical examination without abnormal findings Z00.00 The patient received the influenza vaccination during the visit. 2. Morbid (severe) obesity due to excess calories E66.01 HCC 22 The patient is advised to engage in a structured diet and exercise program to reduce BMI to below 30. Orders: Orders Influenza [id number] Immunization Today Z23 - Encounter for immunization
[2025-05-18 08:42] VITALS: BP 118/70; PULSE 96; TEMP 36.2; O2SAT 98; BMI 41.4
--- OUTSIDE RECORDS SUMMARY | 2025-05-18 09:02 | XMS_ITS | Encounter Summary ---
Author Organization [facility] Address [address] [place] [id number] Phone Care Team Providers Care Signal Maintenance Technician Name Role Phone Unavailable Primary Care Provider Unavailabl e Encounter Details Date Type Department Care Team (Late st Contact Info) Description 03/19/2017 Conversion Encounter [facility] - [address] [id number] Social History Tobacco Use Types Packs/Day Years Used Date Smoking Tobacco: Never Comments:Never smoker Comments Unknown Sex and Gender Information Value Date Recorded Sex Assigned at Not on file Legal Sex Female 4:57 PM EDT Gender Identity Female 04/28/2020 10:59 AM EDT Sexual Orientation Not on file documented as of this encounter Plan of Treatment Not on file documented as of this encounter Visit Diagnoses Not on filedocumented in this encounter
--- OUTSIDE RECORDS SUMMARY | 2025-05-18 09:02 | XMS_ITS | Clinical Summary ---
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 1 Units 8 Active ibuprofen 600 MG tabletIndication s:Dysmenorrhea Take 1 tablet (600 mg total) by mouth every 6 (six) hours as needed for mild pain or moderate pain for up to 10 days. 40 tablet 1 8 Active fluconazole (DIFLUCAN) 100 MG tabletIndication s:Tinea versicolor One tab by mouth once a week for 3 weeks. 3 tablet 8 Active Additional Information Patient not taking.Reported on 08/13/2020 levonorgestrel-e thinyl estradiol (Larissia) 0.1-20 MG-MCG per tabletIndication s:Encounter for routine child health examination without abnormal findings Take 1 tablet by mouth once daily. 84 tablet 1 Active Active Problems Problem Noted Date Diagnosed Date Weight gain 08/13/2020 Assessment & Plan (08/13/2020 5:03 PM EST): 08/13/2020 (age 20yr): Possibly related to OCP. We reviewed other BC options incl. nuvaring, depo, nexplanon, mini pill, and IUD. Katharina will take some time to consider and f/u at [facility]. We also discussed the need to exercise and eat well as an act of self care, not exclusively for change in weight or body size. Patellofemoral syndrome of both knees 03/25/2017 Immunizations Immunization Administration Dates Next Due DTaP 5 02/04/2006, 3,2002,06/20,2002 H1N1 07/23/2009 HPV Vaccine 9 Valent 02/23/2015 HPV, Quadrivalent 02/13/2014,01/12/2014 Hep A, ped/adol 02/23/2015,01/12/2014 Hep B, ped/adol 2002,2002,2002 Hib (PRP-T) 05/01/2003, 3,2002,04/06 IPV 02/04/2006, 3,2002,04/06 Influenza Split 07/16/2012,05/06/2011 Influenza, injectable, quadrivalent 05/10/2015 Influenza, injectable, quadr ivalent, preservative free 04/21/2020,04/27/2018,06/23/2016,04/29,06/17/2013 Influenza, injectable, trivalent 07/23/2009 MMR 02/04/2006,01/24/2003 Meningococcal B Trumenba 02/29/2020,08/30/2019 Meningococcal Conj (Menactra) MCV4P 04/27/2018,0 01/12/2014 Pneumococcal Conjugate 05/01/2003,2002,2002,04/06 Tdap 01/12/2014 Varicella 02/08/2007,01/24/2003 Family History Medical History Relation Name Comments Hyperlipidemia Maternal Grandfather Hypertension Maternal Grandfather Hyperlipidemia Maternal Grandmother No Known Problems Mother Rosalba Relation Name Status Comments Maternal Grandfather Alive Maternal Grandmother Alive Mother Rosalba Alive Mother: Alive a nd well Other No family histo ry of Hyperlipidemia, No family history of *CVA/Stroke, No family history of *Dental caries, No family history of *Thrombophilia, No family history of *Heart Disease, No family history of Cancer, No family history of Asthma, No family history of *Sudden /ND under 55, No family history of Diabetes mellitus Social History Tobacco Use Types Packs/Day Years Used Date Smoking Tobacco: Never Smokeless Tobacco: Never Comments:Never smoker Hunger/Food Answer Date Recorded No 04/28/2020 Stable Housing Answer Date Recorded No 04/28/2020 Transportation Concerns Answer Date Rec orded No 04/28/2020 Hazards in Home Answer Date Recorded No 06/16/2020 Financing Utilities Answer Date Recorde d No 06/16/2020 Safety at Home Answer Date Recorded No 06/16/2020 Outside Support Answer Date Recorded No 06/16/2020 Understanding Health Concerns Answer Da te Recorded No 06/16/2020 Financing Health Concerns Answer Date R ecorded No 06/16/2020 Missing School or Work Answer Date Joselito rded No 06/16/2020 Comments No Sex and Gender Information Value Date Recorded Sex Assigned at Not on file Legal Sex Female 4:57 PM EDT Gender Identity Female 04/28/2020 10:59 AM EDT Sexual Orientation Not on file Last Filed Vital Signs Vital Sign Reading Time Taken Comments Blood Pressure 110/68 08/30/2019 2:30 PM EST man ual Pulse 90 08/30/2019 2:20 PM EST Temperature 36.9 C (98.4 F) 09/20/2018 10:36 AM EST Respiratory Rate 16 08/30/2019 2:20 PM EST Oxygen Saturation - - Inhaled Oxygen Concentration - - Weight 72.3 kg (159 lb 6.4 oz) 08/30/2019 2:20 P M EST Height 162 cm (5' 3.78 ) 08/30/2019 2:20 PM EST Body Mass Index 27.55 08/30/2019 2:20 PM EST Plan of Treatment Health Maintenance Due Date Last Done Comments DTaP,Tdap,and Td Vaccines (7 - Td or Tdap) 01/13/2024 01/12/2014, 02/04/2006, 07/21/2003, Additional history exists Influenza Vaccines (#1) 2025 04/21/20, 04/27/2018, 06/23/2016, Additional history exists COVID-19 Vaccine (2024-2 6 season) 2025 Hepatitis B Vaccines Completed 2002, 2002, 2002 HIB Vaccines Completed 05/01/2003, 12/2002, 2002, Additional history exists Pneumococcal Vaccine Completed 05/01/2003, 2002, 2002, Additional history exists IPV Vaccines Completed 02/04/2006, 10/2002, 2002, Additional history exists MMR Vaccines Completed 02/04/2006, 01/24/2003 Varicella Vaccines Completed 02/08/2007, 01/24/2003 HPV Vaccines Completed 02/23/2015, 01/31, 01/12/2014 Hepatitis A Vaccines Completed 02/23/2015, 01/13/20 14 Meningococcal Vaccine Completed 04/27/2018, 014 Men B Vaccine Completed 02/29/2020, 08/30/2019 Procedures * Due to [place] [employer] law, this organization might not be sharing sensitive test results. Procedure Name Priority Date/Time Associated Diagnosis Comments CHLAMYDIA AND GONORRHEA, AMPLIFIED Routine 08/30/2019 3:29 PM EST Encounter for routine child health examination without abnormal findings from Last 3 Months or Most Recently Relevant to Health Maintenance Results * Due to [place] [employer] law, this organization might not be sharing sensitive test results. * Chlamydia and Gonorrhoea, Amplified (08/30/2019 3:29 PM EST) Chlamydia Trachomatis, DNA Probe NEGATIVE (NEG) [facility] Comment: No Chlamydia Trachomatis RNA detected in this patient's sample (REFERENCE RANGE/NORMAL VALUE: NOT DETECTED) Note: This test uses die tester- mediated amplification method to detect rRNA from C. Trachomatis URINE GC AMP PROBE NEGATIVE (NEG) [facility] Comment: No Neisseria Gonorrhoeae RNA detected in this patient's sample (REFERENCE RANGE/NORMAL VALUE: NOT DETECTED) NOTE: This test uses die tester-mediated amplification method to detect rRNA from N.Gonorrhoeae. A negative result does not preclude infection. In the case of a negative urine result, testing of an endocervical(female) or urethral (male) specimen is recommended if there is high clinical suspicion of infection. Due to very high sensitivity of Nucleic Acid Amplification Test, false positive results may occur. Therefore, specimen handling is extremely important. In patients in whom the disease is unlikely, additional sample for testing should be considered after an initial positive result. The performance characteristics of this test have not been evaluated in children. The Aptima Combo2 assay is not intended for the evaluation of suspected sexual abuse or for other medico-legal indications. The ordering provider should assess if the patient had consensual sex without risk of sexual abuse. Consult the [facility] if needed. Contact phone number . Therapeutic failure or success cannot be determined with the Aptima Combo2 assay since nucleic acid may persist following appropriate antimicrobial therapy. The Centers for Disease Control and Prevention (CDC) recommends confirmatory retesting using culture or a different nucleic acid amplification test when positive results occur, if indicated. Testing performed or reported by [facility], a Service of [facility], [address] [place] [address] Main Bowles MD, Booster Plant Operator Urine 08/30/2019 3:29 PM EST 08/30/2019 9:48 PM EST us Henrietta Bautista NP LAB MICROBIOLOGY - GENERAL ORDER MARGO Final Result [facility] from Last 3 Months or Most Recently Relevant to Health Maintenance Insurance [facility]
== END 2025-05-18 09:14 | disposition home or self-care (01) ==
LOC: HO.HMCH 08:34
PROVIDERS: PCP Internal Medicine; Visit Provider Internal Medicine
DX: Z00.00 Encounter for general adult medical examination without abnormal findings (principal); E66.01 Morbid (severe) obesity due to excess calories; Z68.41 Body mass index [BMI] 40.0-44.9, adult; Z23 Encounter for immunization

== ENCOUNTER → 2025-05-18 08:33 | Outpatient (BNVA) | payer BC, SELFPAY | PROVIDERS: PCP Internal Medicine; Visit Provider Internal Medicine | DX: Z00.00 Encounter for general adult medical examination without abnormal findings (principal); E66.01 Morbid (severe) obesity due to excess calories; Z23 Encounter for immunization; Z68.41 Body mass index [BMI] 40.0-44.9, adult | CPT/HCPCS: 90471; 90656; 96127 ==